=== PATIENT | female | born 1945 | race Caucasian/White ===

== ENCOUNTER 2021-06-06 10:10 | Emergency (ER) | payer MEDICARE ==
[2021-06-06 10:16] VITALS: RESP 18
[2021-06-06] MEDS ORDERED: SODIUM CHLORIDE 0.9% 1,000 ML IV STA (10:42)
--- NOTE | 2021-06-06 11:00 | ED ---
Abdominal Pain HPI - General Chief Complaint: Abdominal Pain Stated Complaint: Abd pain Time Seen by Provider: 06/06/21 10:24 Source: patient Mode of arrival: ambulatory Limitations: no limitations - History of Present Illness Initial Comments: 75-year-old female presenting to emergency Department with chief complaint of diarrhea and rectal pain. Patient reports she has been experiencing diarrhea for about 1 week after eating ribs. States she had watery diarrhea that initial few days but now has turned to loose stools. States about 2-3 days ago she has noticed some melena but that has mostly resolved. She denies any abdominal pain, nausea, vomiting. Denies dysuria, increased urgency or frequency. Denies any vaginal discharge or bleeding fall smaller itching. Denies any back pain chest pain shortness of breath. Denies any fevers or chills. - Related Data Home Medications Medication Instructions Recorded Confirmed Latanoprost [Xelpros] 1 drop BOTH EYES HS 06/06/21 06/06/21 Netarsudil Mesylate [Rhopressa] 1 drop BOTH EYES QAM 06/06/21 06/06/21 Omeprazole [PriLOSEC] 20 mg PO AC-BRKFST 06/06/21 06/06/21 Rosuvastatin [Crestor] 10 mg PO PC-SUPPER 06/06/21 06/06/21 Vortioxetine Hydrobromide 20 mg PO PC-LUNCH 06/06/21 06/06/21 [Trintellix] Allergies Allergy/AdvReac Type Severity Reaction Status Date / Time No Known Allergies Allergy Verified 06/06/21 11:06 Review of Systems ROS Statement: Those systems with pertinent positive or pertinent negative responses have been documented in the HPI. ROS Other: All systems not noted in ROS Statement are negative. Past Medical History Past Medical History: Blood Disorder Additional Past Medical History / Comment(s): heart murmur, glaucoma, "low white cells" History of Any Multi-Drug Resistant Organisms: None Reported Past Surgical History: Hysterectomy, Tubal Ligation Additional Past Surgical History / Comment(s): biopsy of spine 2004 Past Anesthesia/Blood Transfusion Reactions: No Reported Reaction Past Psychological History: Depression Smoking Status: Never smoker Past Alcohol Use History: Occasional Past Drug Use History: None Reported General Exam Limitations: no limitations General appearance: alert, in no apparent distress Head exam: Present: atraumatic, normocephalic, normal inspection Eye exam: Present: normal appearance, PERRL Pupils: Present: normal accommodation ENT exam: Present: normal exam, normal oropharynx, mucous membranes moist Neck exam: Present: normal inspection, full ROM. Absent: tenderness Respiratory exam: Present: normal lung sounds bilaterally. Absent: respiratory distress Cardiovascular Exam: Present: regular rate, normal rhythm, normal heart sounds. Absent: systolic murmur GI/Abdominal exam: Present: soft. Absent: distended, tenderness, guarding, rebound, rigid Rectal exam: Present: normal inspection, hemorrhoids (External hemorrhoids). Absent: black stool, bloody stool Extremities exam: Present: normal inspection, full ROM, normal capillary refill. Absent: tenderness, pedal edema, joint swelling Back exam: Present: normal inspection, full ROM. Absent: tenderness, CVA tenderness (R), CVA tenderness (L) Neurological exam: Present: alert, oriented X3 Psychiatric exam: Present: normal affect, normal mood Skin exam: Present: warm, dry, intact, normal color Course Vital Signs 06/06/21 10:11 Temperature 98.1 F Pulse Rate 89 Respiratory 18 Rate Blood Pressure 167/101 O2 Sat by Pulse 98 Oximetry Medical Decision Making - Medical Decision Making 75-year-old female presents to emergency department with a chief complaint of diarrhea. On physical examination, patient is well-appearing without any signs of abdominal or CVA tenderness. Rectal examination reveals external he morrhoids, nonbleeding, nonthrombosed. Stool occult was negative. CBC CMP unremarkable. UA shows +2 ketones to suggest dehydration. Patient was given IV fluids. CT of abdomen and pelvis shows inflammatory changes throughout the colon to suggest inflammatory colitis or nonspecific infection. I suspect her symptoms are secondary after eating the improperly cooked meat prior to her onset of symptoms. Patient was advised to follow a clear liquid diet for the next few days. Advised to follow-up with the PCP. Advised to drink plenty of fluids. Return parameters were discussed patient was understanding and agreeable. Case discussed with Dr. Pham - Lab Data Result diagrams: 06/06/21 10:30 06/06/21 10:30 Lab Results 06/06/21 06/06/21 06/06/21 Range/Units 10:30 10:30 10:30 WBC 8.0 (3.8-10.6) k/uL RBC 4.50 (3.80-5.40) m/uL Hgb 14.5 (11.4-16.0) gm/dL Hct 43.5 (34.0-46.0) % MCV 96.6 (80.0-100.0) fL MCH 32.3 (25.0-35.0) pg MCHC 33.4 (31.0-37.0) g/dL RDW 12.9 (11.5-15.5) % Plt Count 251 (150-450) k/uL MPV 8.1 Neutrophils % 80 % Lymphocytes % 13 % Monocytes % 6 % Eosinophils % 0 % Basophils % 0 % Neutrophils # 6.4 (1.3-7.7) k/uL Lymphocytes # 1.0 (1.0-4.8) k/uL Monocytes # 0.5 (0-1.0) k/uL Eosinophils # 0.0 (0-0.7) k/uL Basophils # 0.0 (0-0.2) k/uL Sodium 138 (137-145) mmol/L Potassium 4.0 (3.5-5.1) mmol/L Chloride 102 (98-107) mmol/L Carbon Dioxide 23 (22-30) mmol/L Anion Gap 13 mmol/L BUN 14 (7-17) mg/dL Creatinine 0.87 (0.52-1.04) mg/dL Est GFR (CKD-EPI)AfAm 77 (>60 ml/min/1.73 sqM) Est GFR (CKD-EPI)NonAf 66 (>60 ml/min/1.73 sqM) Glucose 106 H (74-99) mg/dL Calcium 9.7 (8.4-10.2) mg/dL Total Bilirubin 1.7 H (0.2-1.3) mg/dL AST 23 (14-36) U/L ALT 13 (4-34) U/L Alkaline Phosphatase 77 (38-126) U/L Total Protein 7.6 (6.3-8.2) g/dL Albumin 4.4 (3.5-5.0) g/dL Lipase 37 (23-300) U/L Urine Color Urine Appearance (Clear) Urine pH (5.0-8.0) Ur Specific Colo (1.001-1.035) Urine Protein (Negative) Urine Glucose (UA) (Negative) Urine Ketones (Negative) Urine Blood (Negative) Urine Nitrite (Negative) Urine Bilirubin (Negative) Urine Urobilinogen (<2.0) mg/dL Ur Leukocyte Esterase (Negative) Urine RBC (0-5) /hpf Urine WBC (0-5) /hpf Ur Squamous Epith Cells (0-4) /hpf Urine Mucus (None) /hpf Stool Occult Blood Negative (Negative) 06/06/21 Range/Units 12:05 WBC (3.8-10.6) k/uL RBC (3.80-5.40) m/uL Hgb (11.4-16.0) gm/dL Hct (34.0-46.0) % MCV (80.0-100.0) fL MCH (25.0-35.0) pg MCHC (31.0-37.0) g/dL RDW (11.5-15.5) % Plt Count (150-450) k/uL MPV Neutrophils % % Lymphocytes % % Monocytes % % Eosinophils % % Basophils % % Neutrophils # (1.3-7.7) k/uL Lymphocytes # (1.0-4.8) k/uL Monocytes # (0-1.0) k/uL Eosinophils # (0-0.7) k/uL Basophils # (0-0.2) k/uL Sodium (137-145) mmol/L Potassium (3.5-5.1) mmol/L Chloride (98-107) mmol/L Carbon Dioxide (22-30) mmol/L Anion Gap mmol/L BUN (7-17) mg/dL Creatinine (0.52-1.04) mg/dL Est GFR (CKD-EPI)AfAm (>60 ml/min/1.73 sqM) Est GFR (CKD-EPI)NonAf (>60 ml/min/1.73 sqM) Glucose (74-99) mg/dL Calcium (8.4-10.2) mg/dL Total Bilirubin (0.2-1.3) mg/dL AST (14-36) U/L ALT (4-34) U/L Alkaline Phosphatase (38-126) U/L Total Protein (6.3-8.2) g/dL Albumin (3.5-5.0) g/dL Lipase (23-300) U/L Urine Color Yellow Urine Appearance Clear (Clear) Urine pH 5.5 (5.0-8.0) Ur Specific Colo >1.050 H (1.001-1.035) Urine Protein Negative (Negative) Urine Glucose (UA) Negative (Negative) Urine Ketones 2+ H (Negative) Urine Blood Small H (Negative) Urine Nitrite Negative (Negative) Urine Bilirubin Negative (Negative) Urine Urobilinogen <2.0 (<2.0) mg/dL Ur Leukocyte Esterase Negative (Negative) Urine RBC 2 (0-5) /hpf Urine WBC 1 (0-5) /hpf Ur Squamous Epith Cells 1 (0-4) /hpf Urine Mucus Rare H (None) /hpf Stool Occult Blood (Negative) Disposition Clinical Impression: Colitis, Diarrhea Disposition: HOME SELF-CARE Condition: Stable Instructions (If sedation given, give patient instructions): Clear Liquid Diet (ED), Colitis (ED) Additional Instructions: Follow with the primary care physician. Return to emergency department if symptoms worsen. Is patient prescribed a controlled substance at d/c from ED?: No Referrals: Rosario Sharpe MD [Primary Care Provider] - 1-2 days Time of Disposition: 13:05
[2021-06-06 11:04] LABS: Basophils % (A) 0 %; Eosinophils % (A) 0 %; HCT 43.5 % (34.0-46.0); HGB 14.5 gm/dL (11.4-16.0); Lymphocytes % (A) 13 %; MCH 32.3 pg (25.0-35.0); MCHC 33.4 g/dL (31.0-37.0); MCV 96.6 fL (80.0-100.0); Mean Platelet Volume 8.1; Monocytes # (A) 0.5 k/uL (0-1.0); Monocytes % (A) 6 %; Neutrophils # (A) 6.4 k/uL (1.3-7.7); Neutrophils % (A) 80 %; Platelet Count 251 k/uL (150-450); RDW 12.9 % (11.5-15.5)
[2021-06-06 11:18] LABS: Albumin 4.4 g/dL (3.5-5.0); Calcium 9.7 mg/dL (8.4-10.2); Total Bilirubin 1.7 mg/dL (0.2-1.3); Total Protein 7.6 g/dL (6.3-8.2)
--- NOTE | 2021-06-06 12:13 | CT ---
EXAMINATION TYPE: CT abdomen pelvis w con DATE OF EXAM: 06/06/2021 COMPARISON: NONE HISTORY: 75-year-old female with one week of Diarrhea TECHNIQUE: Contiguous axial scanning of the abdomen and pelvis following administration of 100 ml Iso brit 300 IV contrast. Delayed images through the kidneys and coronal/sagittal reconstructions perform ed. CT DLP: 667.5 mGycm Automated exposure control for dose reduction was used. FINDINGS: Heart normal size without pericardial effusion. Small amount of focal fat along the anterior falciform ligament. No other focal liver lesion seen. Po rtal venous system is patent. No abnormal gallbladder distention. Adrenal glands, right kidney, spleen, and atrophic pancreas otherwise show no gross abnormal body. Benign 1.6 cm left upper pole renal cyst. Mild to moderate atherosclerotic calcifications infrarenal abdominal aorta without aneurysm. No dilated small bowel, free fluid, or free air. No mesenteric or retroperitoneal lymphadenopathy. Normal appendix. There are segmental areas of cysts circumferential wall thickening of the colon including the cecum a nd ascending colon to the level of the splenic flexure. Additional thickening at the lower descending colon and mild within the ethmoid:. No significant stool burden. Mild circumferential bladder wall thickening. Pelvic lymph nodes. Uterus surgically absent. Left ovar y visualized with a 1.6 cm cyst. Right ovary not clearly delineated from adjacent bowel loops. No abn ormal fluid collection the pelvis or pelvic adenopathy. Bones: There is facet arthropathy mid to lower lumbar spine. IMPRESSION: 1. SEGMENTAL MILD TO MODERATE WALL THICKENING THROUGHOUT THE COLON INCLUDING THE CECUM/ASCENDING COLO N, LOWER DESCENDING COLON AND SIGMOID COLON. CORRELATE FOR NONSPECIFIC INFECTIOUS OR INFLAMMATORY COL ITIS. 2. MILD CIRCUMFERENTIAL BLADDER WALL THICKENING MAY BE CHRONIC FOR THE PATIENT. CORRELATE TO EXCLUDE CYSTITIS. 3. A 1.6 CM CYST OF THE LEFT OVARY. ANNUAL ULTRASOUND SURVEILLANCE IS RECOMMENDED IN A POSTMENOPAUSAL FEMALE.
[2021-06-06 12:43] LABS: Appearance,Urine Clear (Clear); Bilirubin,Urine Negative (Negative); Blood,Urine Small (Negative); Color,Urine Yellow; Glucose,Urine (UA) Negative (Negative); Ketones,Urine 2+ (Negative); Leukocyte Esterase,Urine Negative (Negative); Mucus,Urine Rare /hpf; Nitrite,Urine Negative (Negative); PH, Urine 5.5 (5.0-8.0); Protein,Urine Negative (Negative); RBC,Urine 2 /hpf (0-5); Squamous Epithelial Cell,Urine 1 /hpf (0-4); Urobilinogen,Urine <2.0 mg/dL (<2.0); WBC,Urine 1 /hpf (0-5)
[2021-06-06 12:48] LABS: Specific Gravity,Urine >1.050 (1.001-1.035)
[2021-06-06 13:09] VITALS: BP 123/81; PULSE 62; TEMP 97.8
== END 2021-06-06 13:08 | disposition home or self-care (01) ==
LOC: EC 10:10
DX: K52.9 Noninfective gastroenteritis and colitis, unspecified (principal); K62.89 Other specified diseases of anus and rectum; F32.9 Major depressive disorder, single episode, unspecified; Z90.710 Acquired absence of both cervix and uterus; Z98.51 Tubal ligation status
CPT/HCPCS: 99284; 96360; 36415; 80053; 83690; 85025; 82272; 81001; 74177; Q9967